=== PATIENT | female | born 2000 | race Caucasian/White ===

== ENCOUNTER → 2024-08-11 10:38 | Outpatient (REF) | payer BC, SELFPAY | LOC: HWRAD 10:38 | PROVIDERS: ATTENDING PHYSICIAN Physician Assistant Surgical; FAMILY PHYSICIAN Physician Assistant Medical; REFERRING PHYSICIAN Obstetrics & Gynecology Gynecologic Oncology | DX: D39.11 Neoplasm of uncertain behavior of right ovary (principal) | CPT/HCPCS: 76830; 76856 ==